=== PATIENT | male | born 1955 | race Caucasian/White ===

== ENCOUNTER → 2019-04-05 | Outpatient (CLI) | payer BC | LOC: LAB.O 12:32 | PROVIDERS: ATTEND Nurse Practitioner | DX: L03.119 Cellulitis of unspecified part of limb (principal) ==

== ENCOUNTER → 2019-04-09 | Outpatient (CLI) | payer BC | LOC: LAB.O 11:46 | PROVIDERS: ATTEND Surgery | DX: L02.415 Cutaneous abscess of right lower limb (principal) ==

== ENCOUNTER → 2020-02-09 | Outpatient (CLI) | payer SELFPAY | LOC: GOCC 00:01 | PROVIDERS: ATTEND Internal Medicine | DX: I63.9 Cerebral infarction, unspecified (principal); E11.8 Type 2 diabetes mellitus with unspecified complications; E46 Unspecified protein-calorie malnutrition; J96.90 Respiratory failure, unspecified, unspecified whether with hypoxia or hypercapnia; Z74.9 Problem related to care provider dependency, unspecified ==

== ENCOUNTER 2020-02-14 12:43 | Inpatient (IN) | payer SELFPAY ==
[2020-02-14] MEDS ORDERED: SODIUM CHLORIDE 0.9% (FLUSH) 10 ML SYG IV PRN (12:52)
[2020-02-14] MEDS ORDERED: SODIUM CHLORIDE 0.9% 1000ML 1,000 ML IVS ONE ×3 (12:53→15:46)
--- NOTE | 2020-02-14 13:09 | ED.PDOC ---
History of Present Illness - General Time Seen by Provider: 02/14/20 12:52 Source: EMS, shelter records - History of Present Illness Initial Comments: 65 yo male with PMH of stroke, hx of trach dependency s/p reversal, g-tube dependent, chronic indwelling coats who is bib EMS from [facility] for cc of possible seizure activity. Per EMS no seizure activity was reported on scene, just were told that the patient had an elevated heart rate and they wanted him evaluated. Pt noted to be tachycardic en route HR 120s but afebrile, remainder of vitals stable. Reported he is otherwise at his baseline mental status. Pt at baseline seems to be awake and alert, minimal verbal communication. Bed- bound, fully dependent on others for all ADL's. He denies any complaints to me and denies any pain, dyspnea, or other discomforts currently. Allergies/Adverse Reactions: Allergies Meperidine [From Demerol HCl] Allergy (Verified 02/14/20 13:39) Home Medications: Ambulatory Orders Ascorbic Acid [Vitamin C] 250 mg PO DAILY 02/14/20 Aspirin [(None)] 325 mg PO DAILY 02/14/20 Cholecalciferol [Vitamin D-3] 5,000 unit PO DAILY 02/14/20 Divalproex Sodium [Depakote] 250 mg PO BID 02/14/20 Famotidine [Pepcid Tab] 20 mg PO BID 02/14/20 Folic Acid [FA-8] 0.8 mg PO DAILY 02/14/20 Insulin Glargine [Lantus Solostar] 20 unit SC BID 02/14/20 Metformin HCl [Fortamet] 500 mg PO BID 02/14/20 Quetiapine Fumarate [Seroquel] 75 mg PO BID 02/14/20 RX: Clonazepam 0.5 mg PO BID 02/14/20 RX: Melatonin 3 mg PO BEDTIME 02/14/20 RX: Tramadol HCl 50 mg PO Q8H PRN 02/14/20 RX: Zinc Sulfate 220 mg PO DAILY 02/14/20 Silodosin [Rapaflo] 8 mg PO DAILY 02/14/20 Review of Systems - Review of Systems Review of Systems: 02/14/20 13:09 as per HPI All other Systems: Reviewed and Negative Past Medical History (General) - Patient Medical History Hx Stroke: Yes Hx Hypertension: Yes Hx Diabetes: Yes - Vaccination History Hx Tetanus, Diphtheria Vaccination: Yes - 2012 Family Medical History - Family History Mother Family History: Unknown Physical Exam - Physical Exam General Appearance: Alert, Comfortable, No apparent distress, Unkempt Eye Exam: bilateral normal Ears, Nose, Throat: normal ENT inspection, normal pharynx Neck: non-tender, full range of motion, supple, normal inspection Respiratory: chest non-tender, no respiratory distress, no accessory muscle use, rales - wet rales BL at lower and mid lung villarreal, rhonchi Cardiovascular/Chest: no edema, no gallop, no JVD, no murmur, tachycardia Peripheral Pulses: radial,right: 2+, radial,left: 2+ Gastrointestinal/Abdominal: non tender, soft, no organomegaly Back Exam: normal inspection, no CVA tenderness, no vertebral tenderness Extremity: non-tender, normal inspection, no pedal edema, no calf tenderness Neurologic: alert, other - generally weak, strength appears 3/5 throughout all extremities but difficult to test given baseline mental status, able to answer simple yes/no questions and follow simple commands Skin Exam: warm/dry, pallor Progress - Progress Progress: 02/14/20 13:11 AMS -consider: infection/sepsis, ?seizure, ?CVA, CHF, PNA, ACS, other, metabolic derangement, other -obtain cardiac work-up, CT head, sepsis work-up -place PIV, 1 L NS bolus 02/14/20 16:37 -CT head showed no acute processes -Labs revealed WBC 15,000 w/ left shift & no bands, lactate 2.3 -> 2.1 (improving with IV fluids). Abnormal LFT's and alk phos so CT A/P obtained which revealed no acute intraabdominal processes but a left lower lobe lung infiltrate noted concerning for PNA. Pt also noted to be strep positive. CPK >900 -> Rhabdo. -Spoke with pt's at bedside who states pt did have a seizure several years ago while in the hospital after his stroke and is on Depakote. No further events until today - today's event witnessed by nurse at [facility] but not by . No further seizure activity in ED and pt improving - reports nearly back to baseline mental status. -Discussed dx's of CAP, strep, ?UTI, sepsis, rhabdo, ?seizure and need for admission. Blood cx's drawn and begun on Zosyn for broad-spectrum coverage. -Spoke with Tawana Isreal who accepts for admission. After some discussion, will also send COVID testing given high-risk pt. He has not had a fever today. However, initial O2 sat here was 88% on room air which improved to >95% with 2 L by NC. Onesimo Sanford MD Billing #[id number] 02/14/20 12:52 Sodium Chloride 0.9% (Flush) [Saline Flush Syringe] 10 ml IV PRN PRN Pulse Oximetry Assessment DAILY 02/14/20 12:53 URINALYSIS Stat 02/14/20 13:00 EKG STAT 02/14/20 13:49 Hold Metformin x 48Hrs [id number] 02/14/20 14:20 BLOOD CULTURE Stat 02/14/20 15:46 Sodium Chloride 0.9% 1000ML [Ns 1000 ml] 1,000 ml IVS ONCE 02/14/20 16:23 SARS-COV2 PCR HIGH RISK MC Stat 02/15/20 09:00 Pulse Ox Daily Laboratory Results - last 24 hr 02/14/20 02/14/20 02/14/20 13:03 13:18 13:18 WBC 15.7 H RBC 3.46 L Hgb 9.9 L Hct 29.8 L MCV 86.0 MCH 28.5 MCHC 33.2 RDW 13.9 Plt Count 399 MPV 7.3 L Absolute Neuts (auto) 13.40 H Absolute Lymphs (auto) 1.20 Absolute Monos (auto) 1.00 H Absolute Eos (auto) 0.00 Absolute Basos (auto) 0.00 Neutrophils % 85.4 H Lymphocytes % 7.5 L Monocytes % 6.6 Eosinophils % 0.2 L Basophils % 0.3 Sodium 136 Potassium 4.4 Chloride 103 Carbon Dioxide 22 Anion Gap 15.4 BUN 50 H Creatinine 1.03 BUN/Creatinine Ratio 48.5 H POC Glucose 165 H Random Glucose 151 H Serum Osmolality 288.2 Lactic Acid Calcium 8.6 Total Bilirubin 0.7 AST 76 H ALT 160 H Alkaline Phosphatase 262 H Creatine Kinase Troponin I B-Natriuretic Peptide 118.0 H Serum Total Protein 7.1 Albumin 2.2 L Globulin 4.9 H Albumin/Globulin Ratio 0.4 L Group A Strep Rapid 02/14/20 02/14/2002/13/20 13:18 13:18 13:18 WBC RBC Hgb Hct MCV MCH MCHC RDW Plt Count MPV Absolute Neuts (auto) Absolute Lymphs (auto) Absolute Monos (auto) Absolute Eos (auto) Absolute Basos (auto) Neutrophils % Lymphocytes % Monocytes % Eosinophils % Basophils % Sodium Potassium Chloride Carbon Dioxide Anion Gap BUN Creatinine BUN/Creatinine Ratio POC Glucose Random Glucose Serum Osmolality Lactic Acid 2.3 H Calcium Total Bilirubin AST ALT Alkaline Phosphatase Creatine Kinase 915 H* Troponin I 0.03 B-Natriuretic Peptide Serum Total Protein Albumin Globulin Albumin/Globulin Ratio Group A Strep Rapid 02/14/20 02/14/20 13:40 14:05 WBC RBC Hgb Hct MCV MCH MCHC RDW Plt Count MPV Absolute Neuts (auto) Absolute Lymphs (auto) Absolute Monos (auto) Absolute Eos (auto) Absolute Basos (auto) Neutrophils % Lymphocytes % Monocytes % Eosinophils % Basophils % Sodium Potassium Chloride Carbon Dioxide Anion Gap BUN Creatinine BUN/Creatinine Ratio POC Glucose Random Glucose Serum Osmolality Lactic Acid 2.1 Calcium Total Bilirubin AST ALT Alkaline Phosphatase Creatine Kinase Troponin I B-Natriuretic Peptide Serum Total Protein Albumin Globulin Albumin/Globulin Ratio Group A Strep Rapid Positive - EKG/XRAY/CT EKG: Sinus - sinus tach, HR 120, no ST elevs or q waves, axis and intervals normal, shaky baseline given pt's tremors, no prior EKG for comparison XRAY: chest - no acute processes per my read Departure - Departure Clinical Impression: Community acquired pneumonia, Strep pharyngitis, Sepsis, Seizure, Rhabdomyolysis Time of Disposition: 16:36 Disposition: Admit Patient Condition: Fair Home Medications: Ambulatory Orders Ascorbic Acid [Vitamin C] 250 mg PO DAILY 02/14/20 Aspirin [(None)] 325 mg PO DAILY 02/14/20 Cholecalciferol [Vitamin D-3] 5,000 unit PO DAILY 02/14/20 Divalproex Sodium [Depakote] 250 mg PO BID 02/14/20 Famotidine [Pepcid Tab] 20 mg PO BID 02/14/20 Folic Acid [FA-8] 0.8 mg PO DAILY 02/14/20 Insulin Glargine [Lantus Solostar] 20 unit SC BID 02/14/20 Metformin HCl [Fortamet] 500 mg PO BID 02/14/20 Quetiapine Fumarate [Seroquel] 75 mg PO BID 02/14/20 RX: Clonazepam 0.5 mg PO BID 02/14/20 RX: Melatonin 3 mg PO BEDTIME 02/14/20 RX: Tramadol HCl 50 mg PO Q8H PRN 02/14/20 RX: Zinc Sulfate 220 mg PO DAILY 02/14/20 Silodosin [Rapaflo] 8 mg PO DAILY 02/14/20 Decision To Admit - Decistion To Admit Decision to Admit Reason: Admit from ER Decision to Admit Date: 02/14/20 Decision to Admit Time: 16:37
--- NOTE | 2020-02-14 13:15 | RAD ---
EXAM DESCRIPTION: Chest,1 View CLINICAL HISTORY: 65 years Male, tachycardia, altered mental status COMPARISON: None. TECHNIQUE: AP portable chest. FINDINGS: Fair expansion of the lungs is evident without consolidation, layering effusion, or large mass. Modest eventration of the right hemidiaphragm and elevation of the lung base is noted without significant inflammatory changes. Heart size and vascularity appear normal for AP technique and degree of inspiration. No gross bony, hilar, or mediastinal abnormalities are noted. IMPRESSION: Normal chest, one view Electronically signed by: Alvarado Osei MD 02/14/2020 1:14 PM CDT
--- NOTE | 2020-02-14 14:05 | CT ---
EXAM DESCRIPTION: Head CLINICAL HISTORY: altered mental status, hx of stroke COMPARISON: None available TECHNIQUE: Non contrast cranial CT with multiplanar reconstructions. FINDINGS: No acute intracranial hemorrhage, transcortical infarct, mass or mass effect. No intra or extra-axial fluid collection. No focal edema or midline shift. There is moderate mineralization within the bilateral basal ganglia and bilateral cerebellar white matter/dentate nuclei, nonspecific. Mild central cerebral volume loss. No hydrocephalus. Scattered chronic appearing infarcts within the bilateral centrum semiovale and prado radiata in addition to chronic infarct/focal encephalomalacia within the left inferior temporal lobe. Mild periventricular and deep white matter hypodensities are likely related to chronic microvascular ischemic changes. No displaced calvarial fracture. The visualized paranasal sinuses and the mastoids are clear. Chronic sclerosis within the posterior aspect of the right mastoid air cells. IMPRESSION: 1. No acute intracranial hemorrhage or transcortical infarct. MRI is more sensitive for the evaluation of acute/subacute intracranial ischemia and can be obtained if clinically warranted. 2. Scattered chronic infarcts within the bilateral deep white matter and left temporal lobe. 3. Nonspecific mineralization within the bilateral basal and cerebellar dentate nuclei. This exam was performed according to our departmental dose-optimization program, which includes automated exposure control, adjustment of the mA and/or kV according to patient size and/or use of iterative reconstruction technique. Electronically signed by: Nael De Jesus DO 02/14/2020 2:04 PM CDT
--- NOTE | 2020-02-14 14:41 | CT ---
EXAM DESCRIPTION: CT ABDOMEN AND PELVIS WITH CONTRAST CLINICAL HISTORY: leukocytosis, alk phos elevation, AMS COMPARISON: None Available. TECHNIQUE: CT of the abdomen and pelvis are performed after IV contrast administration. No oral contrast was given. Multiplanar reconstructions were obtained. FINDINGS: Pleural and subpleural airspace consolidation is present within the left lower lobe and to a lesser extent within the lingula and right lower lobe consistent with pneumonia. Imaging features are atypical or uncommonly reported for (COVID-19 or viral) pneumonia. There is lack of groundglass opacities. [PneAty]. The liver is normal in contour and enhancement. The gallbladder is unremarkable without calcified gallstone. No biliary ductal dilatation. The adrenals and kidneys enhance normally. No hydronephrosis or nephrolithiasis. A percutaneous gastrostomy tube terminates within the gastric body. The spleen is normal in size with scattered splenic calcifications. Scattered pancreas parenchymal calcifications. Moderate constipation with stool noted throughout the cecum, colon, and rectum. There is fecal expansion of the rectum (measuring 9 cm in diameter). No mechanical bowel obstruction. The appendix is not clearly visualized. There is no lymphadenopathy, inflammation, or free fluid observed. No free air. Mild intrapelvic atherosclerosis. A Cook catheter decompresses bladder. Small prostatic calcification. No acute osseous abnormality. Transitional lumbosacral anatomy. IMPRESSION: 1. Left lung base pleural and subpleural airspace infiltrates concerning for pneumonia. More mild infiltrates within the lingula and right lung base. 2. Constipation. Large fecal load within the rectum to be seen with fecal impaction. 3. No intra-abdominal or pelvic organized fluid collection or abscess. This exam was performed according to our departmental dose-optimization program, which includes automated exposure control, adjustment of the mA and/or kV according to patient size and/or use of iterative reconstruction technique. Electronically signed by: Nael De Jesus DO 02/14/2020 2:40 PM CDT
[2020-02-14] MEDS ORDERED: PIPERACILLIN/TAZOBACTAM 3.375 GM in SODIUM CHLORIDE 0.9% 100ML 100 ML IVPB ONE (14:51)
[2020-02-14] MEDS ORDERED: PIPERACILLIN/TAZOBACTAM 3.375 GM VIAL IVPB ONE ×2 (15:45→19:57)
[2020-02-14] MEDS ORDERED: SODIUM CHLORIDE 0.9% 100ML 100 ML IVPB ONE ×2 (15:45→19:58)
--- NOTE | 2020-02-14 17:42 | HP ---
SUPERVISING PHYSICIAN: Ronald Patel MD CHIEF COMPLAINT: Questionable seizure activity and altered mental status. HISTORY OF PRESENT ILLNESS: This is a 65 year-old male patient with a past medical history of stroke with a history of a trach that was reversed with a G- tube and a chronic indwelling Cook catheter. He was brought to the Emergency Room from [facility] for complaints of possible seizure activity. EMS did not report any seizure activity on the scene but they were just told that the patient had an elevated heart rate and there was question of altered mental status by his as well as they were unsure if he had a seizure. It is to be noted he does have a past history of some seizure disorder and presently on Depakote. He was afebrile but his heart rate was in the 120s. The remainder of his vital signs were stable. His did report that he seemed to have a change in his mental status but by the time he got to the Emergency Room he was at his baseline. He is nonverbal and does not follow commands. He is bedbound and fully dependent on others for ADLs. His vital signs in the Emergency Room were temperature of 97.5, heart rate 126, blood pressure 124/83, respiratory rate 22 to 26, it got up as high as the 30s. His oxygen saturation was 88% on room air and came up to the low 90s on oxygen. Lab studies were done. His WBCs were 15,700 with a hemoglobin of 9.9, hematocrit 29.8. He had a left shift on his differential. Blood glucose was 165 with electrolytes within normal limits. BUN 50, creatinine 1.05, lactic acid 2.3. He received some fluids. His AST is 76, ALT 160, alkaline phosphatase 262. Creatinine kinase 915, troponin 0.03. BNP 118. Group A rapid strep was positive. Blood cultures were drawn. Influenza per PCR negative for A and B. Chest x-ray showed normal chest, one-view. Head CT showed (1) no acute intracranial hemorrhage or transcortical infarction. MRI is more sensitive to the evaluation. (2) Scattered chronic infarcts within the bilateral deep white matter and left temporal lobe. (3) Nonspecific mineralization within the bilateral basilar and cerebellar dentate nuclei. Abdomen and pelvis CT showed: (1) Left lung-based pleural and subpleural air-space infiltrates concerning for pneumonia or mild infiltrates within the lingula and right lung base. (2) Constipation, large fecal load within the rectum seen with fecal impaction. (3) No intraabdominal or pelvic organized fluid collection or abscess. He was given Zosyn in the Emergency Room as well as several liters of fluids. His followup lactic acid was 2.1. I was called for admission for sepsis related to bilateral pneumonia. PAST MEDICAL HISTORY: 1. CVA with residual G-tube, chronic indwelling Cook catheter and tracheostomy that has since been reversed. 2. Diabetes mellitus. 3. Hypertension. PAST SURGICAL HISTORY: 1. Toe amputation. CURRENT MEDICATIONS: 1. Ascorbic acid. 2. Aspirin. 3. Vitamin D3. 4. Pepcid. 5. Zinc sulfate. 6. Clonazepam. 7. Depakote. 8. Folic acid. 9. Glargine insulin. 10. Melatonin. 11. Metformin. 12. Seroquel. 13. Rapaflo. 14. Tramadol. . ALLERGIES: Demerol. FAMILY HISTORY: Unknown. SOCIAL HISTORY: There is no history of tobacco, ETOH or illicit drug use. He lives in [facility]. He had a seizure for unknown length of time in the past. REVIEW OF SYSTEMS: Unable to obtain due to patient's current cognitive status. PHYSICAL EXAMINATION: VITAL SIGNS: Temperature 97, heart rate 110, blood pressure 112/76, respiratory rate 20, oxygen saturation 91% on 3 liters nasal cannula. GENERAL: This is a 65 year-old male patient lying in his hospital bed. He is in no acute distress. HEENT: Normocephalic and atraumatic. Pupils are equal and reactive. Oropharynx is clear. NECK: Supple without mass. There is an old tracheostomy scar on his neck. CHEST: Diminished throughout. Chest shows equal rise and fall of the chest with inspiration and expiration. CARDIOVASCULAR: He has a sinus tachycardia on the pre parole counseling aide. ABDOMEN: Soft, nondistended, non-tender. Bowel sounds are positive. EXTREMITIES: No cyanosis, clubbing, or edema. NEUROLOGIC: He is asleep. He awakens easily, opens his eyes but he does not have any meaningful conversation and does not follow commands at this time. SKIN: Warm and dry. LABORATORY: Labs and films are as per the history of present illness. ASSESSMENT: !. Sepsis related to bilateral pneumonia, most likely healthcare associated as patient lives in a long-term care facility. He has an admitting WBC of 15, 700 with a heart rate of 126, respiratory rate of 22 to 30, oxygen saturation 88% on room air. 2. Strep positive phalangitis. 3. High risk for COVID-19 due to comorbidities, his age and being a resident of a long-term care facility. 4. Altered mental status with return to baseline in the Emergency Room. 5. Questionable seizures with a history of seizure disorder, presently on Depakote. 6. Diabetes mellitus type 2. 7. History of CVA with residual long-term effects that have included a reverse tracheostomy, a G-tube and an indwelling Cook catheter totally dependent for ADLS. 8. Constipation with fecal impaction. PLAN: The patient has been admitted to the hospital. I will continue his Zosyn as ordered in the Emergency Room and I have added vancomycin per pharmacy protocol. The pneumonia guidelines have been initiated that include aggressive pulmonary hygiene that includes p.r.n. and scheduled albuterol inhaler. I will given him a dose of milk of 3Funnelolga [employer]iCaresbryan and he may need an enema or a GI consultation tomorrow. I have also done a Depakote level and once his tube feedings have been initiated, we will order a sliding scale insulin based on his feedings. His home medications have been restarted. Neuro checks have been ordered. A COVID-19 test has been sent off and we will await those results as well as follow his cultures as they become available. Labs and films have been ordered for in the morning and we will continue to monitor him closely and follow as needed. #[id number] [facility]
[2020-02-14] MEDS ORDERED: VANCOMYCIN HCL INJ 1,000 MG, VANCOMYCIN HCL INJ 250 MG in SODIUM CHLORIDE 0.9% 250ML 25... IVPB ONE (18:21)
[2020-02-14] MEDS ORDERED: ALBUTEROL INHALER 64 PUFF/8GM INH PRN (18:29)
[2020-02-14] MEDS ORDERED: IV SET AND CAP CHANGE INJ INJ SCH (18:30)
[2020-02-14] MEDS ORDERED: SODIUM CHLORIDE 0.45% 1000ML 1,000 ML IVS ONE (18:33)
[2020-02-14] MEDS ORDERED: DEXTROSE 50% 25 GM/50 ML SYG IV PRN (19:38)
[2020-02-14] MEDS ORDERED: GLUCAGON INJ 1 MG VIAL SUBCU PRN (19:38)
[2020-02-14] MEDS ORDERED: SODIUM CHLORIDE 0.9% 250ML 250 ML ONE (19:49)
[2020-02-14] MEDS ORDERED: VANCOMYCIN HCL INJ 500 MG VIAL ONE (19:49)
[2020-02-14] MEDS ORDERED: VANCOMYCIN HCL INJ 1,000 MG VIAL IVPB ONE (19:50)
[2020-02-14] MEDS ORDERED: DIVALPROEX SODIUM DR 250 MG TAB ONE (19:56)
[2020-02-14] MEDS ORDERED: metFORMIN HCL 500 MG TAB ONE (19:56)
[2020-02-14] MEDS: ALBUTEROL INHALER 64 PUFF/8GM INH SCH (20:54)
[2020-02-14] MEDS: MAGNESIUM HYDROXIDE 30 ML UD PO SCH ×2 (20:56→23:07)
[2020-02-14] MEDS: QUEtiapine FUMARATE 25 MG TAB PO SCH (20:56)
[2020-02-14] MEDS: ENOXAPARIN SODIUM 40 MG/0.4 ML SYG SUBCU SCH (20:56)
[2020-02-14] MEDS: MELATONIN 3 MG TAB PO SCH (20:57)
[2020-02-14] MEDS: INSULIN DETEMIR 100 UNITS/ML PEN SUBCU SCH (20:57)
[2020-02-14] MEDS: SODIUM CHLORIDE 0.9% (FLUSH) 10 ML SYG IV SCH (21:00)
[2020-02-14] MEDS ORDERED: NON-FORMULARY MEDICATION 1 EA MIS (Metformin Hcl [Fortamet] 500 MG) PO SCH (21:00)
[2020-02-14] MEDS ORDERED: NON-FORMULARY MEDICATION 1 EA MIS (Insulin Glargine [Lantus Solostar] 20 UNIT) SC SCH (21:00)
[2020-02-14] MEDS ORDERED: DIVALPROEX SODIUM 250 MG PO SCH (21:00)
[2020-02-14] MEDS: INSULIN LISPRO 100 UNITS/ML PEN SUBCU SCH (21:41)
[2020-02-14] MEDS: PIPERACILLIN/TAZOBACTAM 3.375 GM in SODIUM CHLORIDE 0.9% 100ML 100 ML IVPB SCH (23:07)
[2020-02-15] MEDS ORDERED: PIPERACILLIN/TAZOBACTAM 3.375 GM VIAL IVPB ONE ×2 (04:00→11:21)
[2020-02-15] MEDS ORDERED: SODIUM CHLORIDE 0.9% 100ML 100 ML IVPB ONE ×2 (04:00→11:21)
[2020-02-15] MEDS: PIPERACILLIN/TAZOBACTAM 3.375 GM in SODIUM CHLORIDE 0.9% 100ML 100 ML IVPB SCH (04:30)
[2020-02-15] MEDS: INSULIN LISPRO 100 UNITS/ML PEN SUBCU SCH ×4 (06:44→21:17)
[2020-02-15] MEDS: PANTOPRAZOLE SODIUM IV 40 MG VIAL IV SCH (06:44)
[2020-02-15] MEDS ORDERED: VANCOMYCIN PER PHARMACY IVPB SCH (07:00)
[2020-02-15] MEDS: ALBUTEROL INHALER 64 PUFF/8GM INH SCH ×4 (08:00→20:07)
[2020-02-15] MEDS ORDERED: SODIUM CHLORIDE 0.9% 250ML 250 ML ONE ×2 (08:34→19:30)
[2020-02-15] MEDS ORDERED: VANCOMYCIN HCL INJ 500 MG VIAL ONE ×2 (08:34→19:29)
[2020-02-15] MEDS ORDERED: VANCOMYCIN HCL INJ 1,000 MG VIAL IVPB ONE ×2 (08:35→19:33)
[2020-02-15] MEDS: traMADol HCL 50 MG TAB PO PRN ×2 (08:43→21:30)
[2020-02-15] MEDS: QUEtiapine FUMARATE 25 MG TAB PO SCH ×2 (08:43→20:08)
[2020-02-15] MEDS: DIVALPROEX SODIUM DR 250 MG TAB PO SCH ×2 (08:44→20:08)
[2020-02-15] MEDS: SODIUM CHLORIDE 0.9% (FLUSH) 10 ML SYG IV SCH ×2 (08:44→20:08)
[2020-02-15] MEDS: SILODOSIN 8 MG PO SCH (08:44)
[2020-02-15] MEDS: FOLIC ACID 1 MG TAB PO SCH (08:44)
[2020-02-15] MEDS: VANCOMYCIN HCL INJ 1,000 MG, VANCOMYCIN HCL INJ 250 MG in SODIUM CHLORIDE 0.9% 250ML 25... IVPB SCH ×2 (08:44→21:17)
[2020-02-15] MEDS: INSULIN DETEMIR 100 UNITS/ML PEN SUBCU SCH ×2 (08:45→21:18)
[2020-02-15] MEDS ORDERED: BISACODYL SUPPOSITORY 10 MG PR ONE (09:24)
--- NOTE | 2020-02-15 09:47 | RAD ---
: 1955. Technique: Two portable AP chest x-ray. Comparison: February 14, 2020. Clinical history: Pneumonia. Heart size: Heart size within normal limits. Lungs: No new airspace consolidations are seen. Mild chronic appearing background interstitial opacities are noted. Pleura: No pleural effusion. No pneumothorax. Mediastinum and michelle: Unremarkable. Skeletal: Unremarkable. Support tubings: None. Impression: 1. No acute findings in the chest. Electronically signed by: German Torres MD 02/15/2020 9:46 AM CDT
[2020-02-15] MEDS ORDERED: PIPERACILLIN/TAZOBACTAM 3.375 GM in SODIUM CHLORIDE 0.9% 100ML 100 ML IVPB SCH (11:00)
[2020-02-15] MEDS ORDERED: CEFEPIME 2 GM VIAL ONE ×2 (11:46→19:31)
[2020-02-15] MEDS ORDERED: SODIUM CHL 0.9% 100ML MINI-BAG 100 ML IVPB ONE ×2 (11:46→19:32)
[2020-02-15] MEDS: NON-FORMULARY MEDICATION 1 EA MIS GT SCH ×3 (13:03→21:20)
[2020-02-15] MEDS: CEFEPIME 2 GM in SODIUM CHL 0.9% 100ML MINI-BAG 100 ML IVPB SCH ×2 (13:03→19:54)
[2020-02-15] MEDS: levoFLOXacin 750MG IV 750 MG in PREMIX BAG 1 BAG IVPB SCH (13:08)
[2020-02-15] MEDS: metFORMIN HCL 500 MG TAB PO SCH (16:46)
--- NOTE | 2020-02-15 17:04 | PN ---
SUPERVISING PHYSICIAN: Ronald Patel MD DATE: 02/15/20 SUBJECTIVE: The patient is resting in bed. He has had a low grade fever of 100.0 overnight, remains on nasal cannula is showing to be stable. OBJECTIVE: VITAL SIGNS: T-max 100.0 with pulse 96, blood pressure 138/72, respirations 18, oxygen saturation 97% on 3 liter nasal cannula. GENERAL: The patient is resting comfortably, does not appear to be in any distress. He is alert to verbal commands but alvarenga not converse. CHEST: Lung sounds remain diminished throughout. HEART: Continues to show tachycardia on bedside monitor. ABDOMEN: Soft, non-tender, bowel sounds are positive. EXTREMITIES: Without edema. NEUROLOGIC: He awakens easily but does not have any meaningful conversation but will follow some basic commands. He does not show to have any obvious focal deficits. SKIN: Warm and dry. LABORATORY: White count 12,800, hemoglobin down to 8.2, hematocrit 24.0, differential does continue to show a left shift. Chemistries show normal electrolytes with BUN 42, creatinine 0.9, calcium 8.2. Liver functions show elevation but improvement, AST down to 50, ALT down to 115. Alkaline phosphatase 209. Blood sugars remain stable between 69 and 143. MICROBIOLOGY: Urine culture pending. Blood cultures negative at 24 hours. Repeat chest x-ray this morning per radiology interpretation shows no air-space consolidation with some mild chronic appearing interstitial opacities noted but no significant change from previous findings per radiology interpretation. ASSESSMENT: 1. Sepsis due to bilateral pneumonia, healthcare associated with patient being a resident of a long-term care facility. 2. Group A strep pharyngitis. 3. High risk for COVID-19 with risk factors for comorbidities and resident of a long-term care facility, pending results. 4. Questionable seizures with a history of seizure disorder, presently on Depakote. 5. Diabetes mellitus type 2 showing to be stable. 6. 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 7. Decubitus on coccyx, chronic, stage 2 to 3. 8. Chronic constipation with some fecal impaction. PLAN: Will continue with current plan of care but will monitor patient with antibiotics. Change him off Zosyn, vancomycin combination to include Cefepime, vancomycin and Levaquin, just given his age, disabilities and continued need for coverage for hospital healthcare associated pneumonia. Right now, his renal function is showing to be stable. Will continue to monitor that as needed. His COVID-19 is still pending. Will continue to work on the constipation with de- impaction with digital exam and Dulcolax suppositories. Once he is showing to have good bowel movements, will start him on some Miralax and milk of magnesia as needed. I anticipate another 24-48 hours of more aggressive management before we can transition him back to outpatient management. Until then, we will continue to monitor and treat as needed. [id number]
[2020-02-15] MEDS: ENOXAPARIN SODIUM 40 MG/0.4 ML SYG SUBCU SCH (20:07)
[2020-02-15] MEDS: MELATONIN 3 MG TAB PO SCH (20:08)
[2020-02-16] MEDS ORDERED: CEFEPIME 2 GM VIAL ONE ×4 (01:54→19:38)
[2020-02-16] MEDS ORDERED: SODIUM CHL 0.9% 100ML MINI-BAG 100 ML IVPB ONE ×4 (01:54→19:38)
[2020-02-16] MEDS: CEFEPIME 2 GM in SODIUM CHL 0.9% 100ML MINI-BAG 100 ML IVPB SCH ×3 (03:27→20:00)
[2020-02-16] MEDS: SODIUM CHLORIDE 0.9% (FLUSH) 10 ML SYG IV PRN ×2 (05:41→21:06)
[2020-02-16] MEDS: PANTOPRAZOLE SODIUM IV 40 MG VIAL IV SCH (05:41)
[2020-02-16] MEDS: NON-FORMULARY MEDICATION 1 EA MIS GT SCH ×4 (06:05→21:00)
[2020-02-16] MEDS: INSULIN LISPRO 100 UNITS/ML PEN SUBCU SCH ×4 (06:43→21:35)
[2020-02-16] MEDS: ALBUTEROL INHALER 64 PUFF/8GM INH SCH ×4 (08:55→20:00)
[2020-02-16] MEDS: VANCOMYCIN HCL INJ 1,000 MG, VANCOMYCIN HCL INJ 250 MG in SODIUM CHLORIDE 0.9% 250ML 25... IVPB SCH (09:00)
[2020-02-16] MEDS: metFORMIN HCL 500 MG TAB PO SCH ×2 (09:07→16:39)
[2020-02-16] MEDS: FOLIC ACID 1 MG TAB PO SCH (09:07)
[2020-02-16] MEDS: QUEtiapine FUMARATE 25 MG TAB PO SCH ×2 (09:07→20:27)
[2020-02-16] MEDS: SODIUM CHLORIDE 0.9% (FLUSH) 10 ML SYG IV SCH ×2 (09:07→20:29)
[2020-02-16] MEDS: DIVALPROEX SODIUM DR 250 MG TAB PO SCH ×2 (09:07→20:28)
[2020-02-16] MEDS: INSULIN DETEMIR 100 UNITS/ML PEN SUBCU SCH ×2 (09:12→23:16)
[2020-02-16] MEDS ORDERED: VANCOMYCIN HCL INJ 500 MG VIAL ONE ×2 (09:14→19:34)
[2020-02-16] MEDS ORDERED: SODIUM CHLORIDE 0.9% 250ML 250 ML ONE ×2 (09:14→19:35)
[2020-02-16] MEDS ORDERED: VANCOMYCIN HCL INJ 1,000 MG VIAL IVPB ONE ×2 (09:15→19:38)
[2020-02-16] MEDS: VANCOMYCIN HCL INJ 1,000 MG, VANCOMYCIN HCL INJ 500 MG in SODIUM CHLORIDE 0.9% 250ML 25... IVPB SCH ×2 (09:19→21:07)
[2020-02-16] MEDS: SILODOSIN 8 MG PO SCH (10:47)
[2020-02-16] MEDS: levoFLOXacin 750MG IV 750 MG in PREMIX BAG 1 BAG IVPB SCH (13:38)
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
[2020-02-16] MEDS: ENOXAPARIN SODIUM 40 MG/0.4 ML SYG SUBCU SCH (20:26)
[2020-02-16] MEDS: traMADol HCL 50 MG TAB PO PRN (20:27)
[2020-02-16] MEDS: MELATONIN 3 MG TAB PO SCH (20:28)
[2020-02-17] MEDS ORDERED: SODIUM CHLORIDE 0.9% 1000ML 1,000 ML IVS ONE (01:30)
[2020-02-17] MEDS ORDERED: SODIUM CHLORIDE 0.9% 100ML 100 ML IVPB ONE (03:00)
[2020-02-17] MEDS ORDERED: CEFEPIME 2 GM VIAL IV ONE (03:00)
[2020-02-17] MEDS: CEFEPIME 2 GM in SODIUM CHL 0.9% 100ML MINI-BAG 100 ML IVPB SCH ×2 (03:09→11:46)
[2020-02-17] MEDS: PANTOPRAZOLE SODIUM IV 40 MG VIAL IV SCH (06:14)
[2020-02-17] MEDS: INSULIN LISPRO 100 UNITS/ML PEN SUBCU SCH ×2 (07:10→11:45)
[2020-02-17] MEDS: NON-FORMULARY MEDICATION 1 EA MIS GT SCH ×2 (07:11→11:46)
[2020-02-17] MEDS: QUEtiapine FUMARATE 25 MG TAB PO SCH (08:15)
[2020-02-17] MEDS: FOLIC ACID 1 MG TAB PO SCH (08:15)
[2020-02-17] MEDS: DIVALPROEX SODIUM DR 250 MG TAB PO SCH (08:15)
[2020-02-17] MEDS: metFORMIN HCL 500 MG TAB PO SCH (08:25)
[2020-02-17] MEDS: SILODOSIN 8 MG PO SCH (08:25)
[2020-02-17] MEDS ORDERED: SODIUM CHLORIDE 0.9% 250ML 250 ML ONE (08:26)
[2020-02-17] MEDS ORDERED: VANCOMYCIN HCL INJ 500 MG VIAL ONE (08:26)
[2020-02-17] MEDS ORDERED: VANCOMYCIN HCL INJ 1,000 MG VIAL IVPB ONE (08:27)
[2020-02-17] MEDS: SODIUM CHLORIDE 0.9% (FLUSH) 10 ML SYG IV SCH (08:32)
[2020-02-17] MEDS: ALBUTEROL INHALER 64 PUFF/8GM INH SCH ×2 (08:32→13:00)
[2020-02-17] MEDS: VANCOMYCIN HCL INJ 1,000 MG, VANCOMYCIN HCL INJ 500 MG in SODIUM CHLORIDE 0.9% 250ML 25... IVPB SCH (08:32)
[2020-02-17] MEDS ORDERED: INSULIN DETEMIR 100 UNITS/ML PEN SUBCU SCH (10:02)
[2020-02-17] MEDS: INSULIN DETEMIR 100 UNITS/ML PEN SUBCU SCH (11:23)
[2020-02-17] MEDS ORDERED: SODIUM CHL 0.9% 100ML MINI-BAG 100 ML IVPB ONE (11:26)
[2020-02-17] MEDS ORDERED: CEFEPIME 2 GM VIAL ONE (11:26)
[2020-02-17] MEDS: levoFLOXacin 750MG IV 750 MG in PREMIX BAG 1 BAG IVPB SCH (12:27)
[2020-02-17 12:51] VITALS: BP 128/76; TEMP 99; O2SAT 98
--- NOTE | 2020-02-17 18:28 | DS ---
SUPERVISING PHYSICIAN: Raoul Gaviria MD DISCHARGE DIAGNOSIS: 1. Sepsis due to bilateral pneumonia, healthcare associated, with patient being a resident of a long-term care facility. 2. Group A strep pharyngitis. 3. High risk for COVID-19 with risk factors for comorbidities and resident of a long-term care facility. His COVID-19 results are negative. 4. Questionable seizures with a history of seizure disorder, presently on Depakote. 5. Diabetes mellitus type 2, stable. 6. History of cerebrovascular accident with long-term effects including need for G-tube reverse tracheostomy, with totally dependency for ADLs. 7. Decubitus on coccyx, chronic, stage 2 to 3. 8. Chronic constipation with fecal impaction. HISTORY OF PRESENT ILLNESS: This is a 65-year-old male patient with a past medical history of stroke with a history of a trach that was reversed. The stroke was in November of 2019. He also has a G-tube and a chronic indwelling Cook catheter. He came to the Emergency Room from [facility] for complaints of possible seizure activity. EMS did not report any seizure activity on the scene, but they were just told that the patient had an elevated heart rate and there was question of altered mental status by his as well and they were unsure if he had a seizure. He does have a past history of some seizure disorder and is presently on Depakote. He was afebrile, but his heart rate was in the 120s. The remainder of his vital signs were stable. His did report that he seemed to have a change in his mental status, but by the time he got to the Emergency Room, he was mostly at his baseline. He is nonverbal and does not follow commands at the time of admission. He is bedbound and fully dependent on others for ADLs. His vital signs in the Emergency Room were temperature of 97.5, heart rate 126, blood pressure 124/83, respiratory rate 22 to 26, it got up as high as the 30s. His oxygen saturation was 88% on room air and came up to the low 90s on oxygen supplementation. Lab studies showed WBC 15,700 with a hemoglobin of 9.9, hematocrit 29.8. He had a left shift on his differential. Blood glucose was 165 with electrolytes within normal limits. BUN 50, creatinine 1.05, lactic acid 2.3. He received some fluids. His AST was 76, ALT 160, alkaline phosphatase 262. Creatinine kinase 915, troponin 0.03. BNP 118. Group A rapid strep was positive. Blood cultures were drawn. Influenza per PCR negative for A and B. Chest x-ray showed normal chest, one- view. Head CT showed (1) no acute intracranial hemorrhage or transcortical infarction. MRI is more sensitive to the evaluation. (2) Scattered chronic infarcts within the bilateral deep white matter and left temporal lobe. (3) Nonspecific mineralization within the bilateral basilar and cerebellar dentate nuclei. Abdomen and pelvis CT showed: (1) Left lung base pleural and subpleural air-space infiltrates concerning for pneumonia or mild infiltrates within the lingula and right lung base. (2) Constipation, large fecal load within the rectum seen with fecal impaction. (3) No intraabdominal or pelvic organized fluid collection or abscess. He was given Zosyn in the Emergency Room as well as several liters of fluids. His followup lactic acid was 2.1. He was admitted to the hospital for bilateral pneumonia. HOSPITAL COURSE: He was continued on the Zosyn as well as vancomycin was added. The pneumonia guidelines were initiated with aggressive pulmonary hygiene including p.r.n. and scheduled albuterol. He received a dose of Milk of Magnesia and his Depakote level was checked. His tube feedings were resumed and he also had sliding scale insulin per protocol. COVID-19 test was sent off due to his high risk. He was taken off Zosyn and continued on vancomycin plus cefepime and Levaquin. He had a fecal disimpaction as well as Dulcolax suppositories. He was started on MiraLAX and Milk of Magnesia. He did have some low blood sugars and his Levemir was admitted to 10 units b.i.d. Per his , he has returned to his baseline neuro status. He still does not communicate other than he babbles, but is more awake and alert. He had multiple bowel movements. His COVID-19 results came back negative. His vital signs have been stable and he will be discharged back to [facility] in stable condition. LABORATORY: WBCs improved to 8,400 with hemoglobin and hematocrit stable at 8.3 and 24.5. Electrolytes are basically within normal limits except his calcium is slightly low at 7.9. AST 50, ALT 115, alkaline phosphatase 209. Preliminary blood cultures show no growth after 3 days. His followup chest x-ray shows no acute findings. DISCHARGE PLAN: The patient will be discharged back to [facility] in stable condition. In addition to his routine medications, he will continue on cefdinir and Levaquin per G-tube. I have increased his long-acting insulin to 10 units b.i.d. due to his low blood sugars here. That can be adjusted once he is back at the facility and Dr. Ramsey can adjust his insulin as needed. I have also sent him home on some MiraLAX daily. He is to followup with Dr. Ramsey within the next 1 to 2 weeks. He is to return to the hospital or followup with Dr. Ramsey for any problems or complications. DISCHARGE MEDICATIONS: 1. Zinc sulfate. 2. Tramadol. 3. Rapaflo. 4. Seroquel. 5. Fortamet. 6. Melatonin. 7. Folic acid. 8. Pepcid. 9. Depakote. 10. Clonazepam. 11. Vitamin D. 12. Aspirin. 13. Vitamin C. 14. Albuterol inhaler. 15. Cefdinir. 16. Levemir. 17. Levaquin. 18. MiraLAX. [facility][id number]
[2020-02-18] MEDS ORDERED: PANTOPRAZOLE SODIUM TAB 40 MG PO SCH (06:30)
== END 2020-02-17 16:20 | DRG 871 ==
LOC: ER 12:43 → OBSVTOIN 17:41 → MS 17:41
PROVIDERS: ADMIT Nurse Practitioner Acute Care; ATTEND Nurse Practitioner Acute Care
PROC: BW211ZZ Computerized Tomography (CT Scan) of Abdomen and Pelvis using Low Osmolar Contrast (ICD-10-PCS; principal; 2020-02-14)
DX: A41.89 Other specified sepsis (principal); J18.9 Pneumonia, unspecified organism; L89.153 Pressure ulcer of sacral region, stage 3; M62.82 Rhabdomyolysis; Y95 Nosocomial condition; J02.0 Streptococcal pharyngitis; Z20.828 Contact with and (suspected) exposure to other viral communicable diseases; G40.909 Epilepsy, unspecified, not intractable, without status epilepticus; E11.649 Type 2 diabetes mellitus with hypoglycemia without coma; K59.09 Other constipation; R41.82 Altered mental status, unspecified; I10 Essential (primary) hypertension; I69.998 Other sequelae following unspecified cerebrovascular disease; Z79.4 Long term (current) use of insulin; Z79.82 Long term (current) use of aspirin; Z79.899 Other long term (current) drug therapy; Z88.6 Allergy status to analgesic agent; Z93.1 Gastrostomy status; Z96.0 Presence of urogenital implants; Z74.01 Bed confinement status